=== PATIENT | male | born 1960 | race Caucasian/White ===

== ENCOUNTER → 2023-09-07 16:35 | Outpatient (REF) | payer OTHER, SELFPAY | LOC: HWRAD 16:35 | PROVIDERS: ATTENDING PHYSICIAN Internal Medicine | DX: M54.41 Lumbago with sciatica, right side (principal) | CPT/HCPCS: 73502 ==

== ENCOUNTER → 2023-10-12 14:28 | Outpatient (REF) | payer OTHER, SELFPAY | LOC: HWRAD 14:28 | PROVIDERS: ATTENDING PHYSICIAN Nurse Practitioner Adult Health | DX: R10.31 Right lower quadrant pain (principal); N50.82 Scrotal pain; R19.00 Intra-abdominal and pelvic swelling, mass and lump, unspecified site | CPT/HCPCS: 76870; 93976 ==

== ENCOUNTER → 2024-04-24 06:39 | Day surgery (SDC) | payer OTHER, SELFPAY | LOC: GI 06:39 | PROVIDERS: ATTENDING PHYSICIAN Internal Medicine Gastroenterology | DX: Z12.11 Encounter for screening for malignant neoplasm of colon (principal); K59.00 Constipation, unspecified; K57.30 Diverticulosis of large intestine without perforation or abscess without bleeding; K64.8 Other hemorrhoids; D12.2 Benign neoplasm of ascending colon; D12.3 Benign neoplasm of transverse colon; K63.5 Polyp of colon; Z80.0 Family history of malignant neoplasm of digestive organs | CPT/HCPCS: 45380; 88305 ==

== ENCOUNTER → 2024-07-03 10:05 | Outpatient (REF) | payer OTHER, SELFPAY | LOC: HWRAD 10:05 | PROVIDERS: ATTENDING PHYSICIAN Nurse Practitioner Adult Health | DX: R22.2 Localized swelling, mass and lump, trunk (principal); E32.9 Disease of thymus, unspecified | CPT/HCPCS: 71250 ==